=== PATIENT | female | born 1985 | race Caucasian/White ===

== ENCOUNTER → 2017-04-15 | Outpatient (CLI) | payer OTHER ==
[~2017-04-15] MED LIST: DOCU50CA2; PRENTAB26 PO; RANI150T3 PO
== END | disposition home or self-care (01) ==
LOC: C.PAPS 09:05
PROVIDERS: ATTEND Physician Assistant
DX: Z12.4 Encounter for screening for malignant neoplasm of cervix (principal); Z79.890 Hormone replacement therapy

== ENCOUNTER 2021-12-23 21:19 | Inpatient (IN) ==
[2021-12-23] MEDS ORDERED: OXYTOCIN 30 UNITS/500 ML BAG IV PRN (22:05)
[2021-12-23 22:29] LABS: Hematocrit (blood only) 33.4 % (34.1-44.9); Hemoglobin 11.8 g/dl (12.0-16.0); Mean Corpuscular Hgb Conc 35.3 g/dL (32.0-36.0); Mean Corpuscular Volume 90.5 fL (80.0-100.0); Mean Platelet Volume 11.5 fL (9.4-12.3); Platelet Count 154 K/uL (130-400); RDW Standard Deviation 39.4 fL (36.4-46.3); Red Blood Count 3.69 M/uL (3.93-5.22); White Blood Count 9.99 K/ul (4.8-10.8)
--- NOTE | 2021-12-23 23:09 | History & Physical Report ---
Date of Service December 23, 2021 Assessment & Plan (1) Spontaneous rupture of amniotic membranes: Plan: 36-year-old -0-2-1 at 38 weeks and 1 day gestation presenting with spontaneous rupture of membranes since 6:45 PM, Vital signs stable afebrile, H rate reassuring, GBS negative, Early labor with regular contractions, Patient prefers to ambulate and go unmedicated without Pitocin for now, She is open to if needed to augment labor later, She plans to have epidural when she needs it, Plan to admit, monitor, recheck for cervical change, Epidural for pain when she desires, All questions were answered. Admission and Anticipated Discharge Date Admission Date: December 23, 2021 History of Present Illness Chief Complaint: Leakage of fluid Primary Care Provider: Gregoria Maharaj PA-C Patient is a 36-year-old -0-2-1 at 38 weeks and 1 day gestation who felt a big gush of clear fluid leakage from vagina around 6:45 PM. She has been leaking clear fluid since then. Contractions started an hour later and has been irregular and mild. Start to be more regular for the last hour or so. They still feel like Big Arm Romero and not painful. No vaginal bleeding, fever chills, abdominal pain. Good movements. Her has been complicated by, 1. AMA, 2. History of 2 first trimester spontaneous , 3. History of depression 7 years ago, treated with Zoloft and of medications since then. 4. GERD Allergies Allergy/AdvReac Type Severity Reaction Status Date / Time amoxicillin Allergy Mild RASH Verified 12/23/21 21:37 levofloxacin Allergy Mild RASH Verified 12/23/21 21:37 Penicillins Allergy Unknown Rash Verified 12/23/21 21:36 Home Medications Medication Instructions Recorded Confirmed Type prenat.vits,carrie,[id number] 1 tab PO PM 07/02/20 12/23/21 History docusate sodium 100 mg capsule 100 mg PO DAILY 12/23/21 12/23/21 History (Colace) famotidine 20 mg tablet (Pepcid) 20 mg PO DAILY 12/23/21 12/23/21 History omeprazole 20 mg capsule,delayed 20 mg PO DAILY 12/23/21 12/23/21 History release Patient History Medical History History of depression Surgical History Hx of bilateral breast reduction surgery Social History Smoking Status: Never smoker Hx Alcohol Use: No Hx Substance Use: No Preferred Language: Danish Communication Ability: Effective Managed Care Director Required: No Beliefs That Will Affect Care: None marital status: Current Living Situation: Spouse and Family Current Living Situation Comment: and son Eduar current occupational status: employed Other Information That Helps Us Care for You: No Feels Safe at Home: Yes Safety Concerns: Feels Safe At This Time Assistive Devices: None OB History Full-term 7 years ago, 7 pound 6 ounce male infant, 2 first trimester spontaneous abortions [employer] History No history of STDs, no history of herpes, chlamydia, gonorrhea. Review of Systems as per Subjective / HPI Physical Exam Constitutional: WD/WN, vitals as above well developed, well nourished and comfortable (Very happy, smiling and excited) Genitourinary: normal external appearance OB Exam Abdomen: + vertex Manual OB Exam: + cervical dilation 3 cm, + cervical effacement 50% and + station -2 OB Exam Monitor Tracing: + external uterine monitor used and + category I GROSSLY ruptured Results & Data ([facility]) Vital Signs (Past 12 Hours) Vital Signs Temp Pulse Resp BP 12/23/21 21:39 36.6 C 18 12/23/21 21:33 36.6 C 86 18 136/83 Laboratory Results Lab Results 12/23/21 12/23/21 Range/Units 22:15 22:17 WBC 9.99 (4.8-10.8) K/ul RBC 3.69 L (3.93-5.22) M/uL Hgb 11.8 L (12.0-16.0) g/dl Hct 33.4 L (34.1-44.9) % MCV 90.5 (80.0-100.0) fL MCH 32.0 (25.0-34.0) pg MCHC 35.3 (32.0-36.0) g/dL RDW Std Deviation 39.4 (36.4-46.3) fL RDW Coeff of Maximo 12.0 (11.5-14.5) % Plt Count 154 (130-400) K/uL MPV 11.5 (9.4-12.3) fL SARS-CoV-2, RNA, NAAT NEGATIVE (NEGATIVE)
[2021-12-24] MEDS ORDERED: OXYTOCIN 30 UNITS/500 ML BAG IV PRN ×2 (00:46→08:19)
[2021-12-24] MEDS: LACTATED RINGER'S 1,000 ML IV PRN ×2 (02:56→04:20)
[2021-12-24] MEDS ORDERED: ePHEDrine sulfate 50 MG/ML AMP ONE (03:04)
[2021-12-24] MEDS ORDERED: BUPIVACAINE 0.25% 30 ML VIAL ONE (03:05)
[2021-12-24] MEDS ORDERED: fentaNYL citrate 100 MCG/2 ML VIAL ONE (03:05)
[2021-12-24] MEDS ORDERED: fentaNYL 2MCG/ML ROPIVACAINE 1.25MG/ML 100 ML BAG EPI ONE (03:05)
[2021-12-24] MEDS ORDERED: SODIUM CHLORIDE 0.9% INJ 10 ML VIAL ONE (03:05)
[2021-12-24] MEDS ORDERED: LIDOCAINE 2%/EPINEPHRINE 1:200,000 20 ML SDV ONE (03:05)
[2021-12-24] MEDS ORDERED: NALBUPHINE HCL INJ 10 MG/ML AMP IV PRN (04:10)
[2021-12-24] MEDS ORDERED: diphenhydrAMINE 50 MG/ML VIAL IV PRN (04:10)
[2021-12-24] MEDS ORDERED: fentaNYL 2MCG/ML ROPIVACAINE 1.25MG/ML 100 ML BAG EPI PRN (04:10)
[2021-12-24] MEDS ORDERED: NALOXONE HCL 0.4 MG/1 ML VIAL/CARP IV PRN (04:10)
[2021-12-24] MEDS ORDERED: ePHEDrine sulfate 50 MG/ML AMP IV PRN (04:10)
[2021-12-24] MEDS ORDERED: NALOXONE HCL 1 MG in SODIUM CHLORIDE 0.9% 1000ML 1,000 ML IV PRN (04:10)
--- NOTE | 2021-12-24 04:10 | Anesthesiology Consultation ---
Date of Service December 24, 2021 Assessment & Plan Chart Review Chart Review: Patient NOT seen in Pre Admission Testing and Acceptable Risk for Labor Epidural Consults Requested none ASA ASA2 Proposed Anesthesia Anesthesia Type: Labor Epidural Risk / Benefits Reviewed With: PT / POA / Parent / Guardian, Accepts Plan and Informed Consent Obtained History Height/Weight Height: 5 ft 5 in Weight: 68.946 kg Allergies Allergy/AdvReac Type Severity Reaction Status Date / Time amoxicillin Allergy Mild RASH Verified 12/23/21 21:37 levofloxacin Allergy Mild RASH Verified 12/23/21 21:37 Penicillins Allergy Unknown Rash Verified 12/23/21 21:36 Medications Home Medications Medication Instructions Recorded Confirmed Last Taken prenat.vits,carrie,[id number]-[id number] 1 tab PO PM 07/02/20 12/23/21 12/22/21 08:00 docusate sodium 100 mg capsule 100 mg PO DAILY 12/23/21 12/23/21 12/23/21 (Colace) famotidine 20 mg tablet (Pepcid) 20 mg PO DAILY 12/23/21 12/23/21 12/23/21 omeprazole 20 mg capsule,delayed 20 mg PO DAILY 12/23/21 12/23/21 12/23/21 release Active Medications Generic Name Dose Route Start Last Admin Trade Name Freq PRN Reason Stop Dose Admin Lactated Ringer's 1,000 mls @ 125 mls/hr 12/23/21 22:05 12/24/21 03:54 Lr IV 12/25/21 22:04 999 mls/hr .Q8H PRN Infusion L&D Protocol Protocol Past Medical History Medical History History of depression Exercise / Class Metabolic Activity II 4-5 Yardwork/Stairs/Walk up hill Past Surgical History Surgical History Hx of bilateral breast reduction surgery Past Anesthesia History No Hx of Anesthesia Complications and No Family Hx of Anesthesia Complications History of PONV No Hx of PONV and No Hx of Motion Sickness Social History Smoking Status: Never smoker Hx Alcohol Use: No Hx Substance Use: No substance use type: does not use Physical Exam Vital Signs Last Vital Signs Temp 36.8 C 12/24/21 03:00 Pulse 106 H 12/24/21 04:08 Resp 20 12/24/21 03:59 BP 103/57 L 12/24/21 04:07 Pulse Ox 97 12/24/21 04:08 ENMT Mouth: no dentition abnormality Thyromental Distance: > or= 3.5 Finger Breadths Mallampati Class: II Neck normal visual inspection Respiratory normal respiratory effort Auscultation: lungs clear to auscultation bilaterally Cardiovascular Rate/Rhythm: regular rate and regular rhythm Psychiatric Orientation: alert Testing Laboratory Results 12/23/21 22:17
[2021-12-24] MEDS: ONDANSETRON INJ 2 MG/ML 2 ML VIAL IV PRN ×2 (04:38→09:21)
[2021-12-24] MEDS ORDERED: METHYLERGONOVINE MALEATE 0.2 MG/ML AMP ONE (07:53)
[2021-12-24] MEDS ORDERED: miSOPROStoL 200 MCG TAB ONE (07:53)
[2021-12-24] MEDS ORDERED: HYDROCORTISONE ACETATE 25 MG SUPP PR PRN (08:19)
[2021-12-24] MEDS ORDERED: miSOPROStoL 200 MCG TAB PR ONE (08:19)
[2021-12-24] MEDS ORDERED: DIPHTHERIA/TETANUS/PERTUSSIS 0.5 ML SYR/VIAL IM ONE (08:19)
[2021-12-24] MEDS ORDERED: METHYLERGONOVINE MALEATE 0.2 MG/ML AMP IM ONE (08:19)
[2021-12-24] MEDS ORDERED: BENZOCAINE 20% AER SPR 82.5 GM CAN EXT PRN (08:19)
[2021-12-24] MEDS ORDERED: bisacodyL 10 MG SUPP PR PRN (08:19)
[2021-12-24 08:29] LABS: Base Excess Cord Venous Blood -1.5 mEq/L (-7.7-1.9); Cord Venous Blood HCO3 23 mmol/L (18.4-26.8); Cord Venous Blood PCO2 37 mmHg (30.4-57.2); Cord Venous Blood PO2 30 mmHg (14.1-43.3); O2 Saturation Cord Venous Bld 67.5 % (<68)
[2021-12-24 08:34] LABS: Base Excess Cord Arterial Bld -2.9 mEq/L (-9-1.8); CO2 Cord Arterial Blood 49 mmHg (39.1-73.5); HCO3 Cord Arterial Blood 24 mmol/L (19.7-28.5); Oxygen Sat Cord Arterial Blood < 60.0 % (<60); PO2 Cord Arterial Blood 25 mmHg (4.1-31.7)
--- NOTE | 2021-12-24 09:24 | Anesthesia Procedure Note ---
Date of Service December 24, 2021 Anesthesia Post Epidural Note Vital Signs Vital Signs: Temp Pulse Resp BP Pulse Ox 36.5 C 67 18 120/68 100 12/24/21 08:00 12/24/21 09:15 12/24/21 09:00 12/24/21 09:15 12/24/21 07:43 Notes Mental Status: alert / awake / arousable and participated in evaluation Nausea / Vomiting: adequately controlled Pain: adequately controlled Airway Patency, RR, SpO2: stable & adequate BP & HR: stable & adequate Hydration State: stable & adequate Neuraxial Anesthesia: was administered and sensory block is resolving Anesthetic Complications: no major complications apparent and Pt Satisfied with anesthetic care Epidural: Removed without complications and With tip intact
[2021-12-24] MEDS: IBUPROFEN 600 MG TAB PO PRN ×3 (09:27→19:03)
[2021-12-24] MEDS: ACETAMINOPHEN 325 MG TAB PO PRN ×3 (11:13→23:41)
[2021-12-24] MEDS: DOCUSATE SODIUM 100 MG CAP PO SCH (20:03)
[2021-12-25] MEDS: ONDANSETRON INJ 2 MG/ML 2 ML VIAL IV PRN (03:18)
[2021-12-25] MEDS: ACETAMINOPHEN 325 MG TAB PO PRN (06:15)
[2021-12-25 06:46] LABS: Hematocrit (blood only) 32.2 % (34.1-44.9); Hemoglobin 11.2 g/dl (12.0-16.0); Mean Corpuscular Hemoglobin 31.8 pg (25.0-34.0); Mean Corpuscular Hgb Conc 34.8 g/dL (32.0-36.0); Mean Corpuscular Volume 91.5 fL (80.0-100.0); Mean Platelet Volume 11.9 fL (9.4-12.3); Platelet Count 138 K/uL (130-400); RDW Coefficient of Variation 12.4 % (11.5-14.5); RDW Standard Deviation 41.1 fL (36.4-46.3); Red Blood Count 3.52 M/uL (3.93-5.22)
[2021-12-25] MEDS: DOCUSATE SODIUM 100 MG CAP PO SCH (07:27)
[2021-12-25] MEDS: IBUPROFEN 600 MG TAB PO PRN ×2 (07:27→11:07)
[2021-12-25] MEDS ORDERED: PRENATAL VITAMIN 1 TAB PO SCH (08:00)
--- NOTE | 2021-12-25 09:17 | Obstetrical Progress Note ---
Date of Service December 25, 2021 Assessment & Plan Admission and Anticipated Discharge Date Admission Date: December 23, 2021 Subjective Patient is seen and examined. She feels well, no complaints. Ambulating without dizziness Voiding without difficulty Tolerating regular diet with out N&V Bleeding is minimal No fever/ chills/ CP/ SOB/ N&V/ Leg pain Breast feeding without problems Vital Signs Temp Pulse Resp BP Pulse Ox O2 Del Method 12/25/21 03:30 36.5 C 76 16 115/67 Room Air 12/24/21 23:45 36.7 C 64 16 98/61 L 98 Room Air Lab Results 12/23/21 12/23/21 12/24/21 Range/Units 22:15 22:17 07:41 WBC 9.99 (4.8-10.8) K/ul RBC 3.69 L (3.93-5.22) M/uL Hgb 11.8 L (12.0-16.0) g/dl Hct 33.4 L (34.1-44.9) % MCV 90.5 (80.0-100.0) fL MCH 32.0 (25.0-34.0) pg MCHC 35.3 (32.0-36.0) g/dL RDW Std Deviation 39.4 (36.4-46.3) fL RDW Coeff of Maximo 12.0 (11.5-14.5) % Plt Count 154 (130-400) K/uL MPV 11.5 (9.4-12.3) fL Cord ABG pH (7.1-7.38) Cord ABG pCO2 (39.1-73.5) mmHg Cord ABG pO2 (4.1-31.7) mmHg Cord ABG HCO3 (19.7-28.5) mmol/L Cord ABG Base Excess (-9-1.8) mEq/L Cord ABG O2 Sat (<60) % Cord VBG pH 7.40 (7.20-7.44) Cord VBG pCO2 37 (30.4-57.2) mmHg Cord VBG pO2 30 (14.1-43.3) mmHg Cord VBG HCO3 23 (18.4-26.8) mmol/L Cord VBG Base Excess -1.5 (-7.7-1.9) mEq/L Cord VBG O2 Sat 67.5 (<68) % Blood Gas Comments BIGGS SARS-CoV-2, RNA, NAAT NEGATIVE (NEGATIVE) 12/24/21 12/25/21 Range/Units 07:41 06:09 WBC 12.00 H (4.8-10.8) K/ul RBC 3.52 L (3.93-5.22) M/uL Hgb 11.2 L (12.0-16.0) g/dl Hct 32.2 L (34.1-44.9) % MCV 91.5 (80.0-100.0) fL MCH 31.8 (25.0-34.0) pg MCHC 34.8 (32.0-36.0) g/dL RDW Std Deviation 41.1 (36.4-46.3) fL RDW Coeff of Maximo 12.4 (11.5-14.5) % Plt Count 138 (130-400) K/uL MPV 11.9 (9.4-12.3) fL Cord ABG pH 7.30 (7.1-7.38) Cord ABG pCO2 49 (39.1-73.5) mmHg Cord ABG pO2 25 (4.1-31.7) mmHg Cord ABG HCO3 24 (19.7-28.5) mmol/L Cord ABG Base Excess -2.9 (-9-1.8) mEq/L Cord ABG O2 Sat < 60.0 (<60) % Cord VBG pH (7.20-7.44) Cord VBG pCO2 (30.4-57.2) mmHg Cord VBG pO2 (14.1-43.3) mmHg Cord VBG HCO3 (18.4-26.8) mmol/L Cord VBG Base Excess (-7.7-1.9) mEq/L Cord VBG O2 Sat (<68) % Blood Gas Comments BIGGS SARS-CoV-2, RNA, NAAT (NEGATIVE) PE: General: Alert, orientedx3, NAD Abd: soft, NT, fundus firm, below Umbilicus Perineum intact, Lochia rubra minimal Ext; NT, no edema AP: 36 yo s/p , ppd# 1 VSS Afebrile doing well Continue routine care Desires d/c today All questions were answered Discussed when to call D/C home , f/u in office. Results & Data ([facility]) Vital Signs (Past 12 Hours) Vital Signs Temp Pulse Resp BP Pulse Ox O2 Del Method 12/25/21 03:30 36.5 C 76 16 115/67 Room Air 12/24/21 23:45 36.7 C 64 16 98/61 L 98 Room Air
[2021-12-25] MEDS ORDERED: bisacodyL 5 MG TABEC PO SCH (20:00)
--- NOTE | 2022-01-09 20:20 | Delivery Summary ---
DATE OF DELIVERY: 12/24/2021 DELIVERY NOTE: The patient delivered a live in left occiput anterior presentation. There was no nuchal cord. was delivered and placed on mother's abdomen. Delayed cord clamp was perfor med. Infant was placed on mother's abdomen. Cord blood was obtained. Placenta spontaneously delive red. Inspection of the placenta shows a normal-looking placenta. Inspection of the perineum showed a second-degree laceration, which was repaired with 2-0 Vicryl. Rectal exam post-repair showed good sphincter tone. Estimated blood loss was 450 mL. The patient and baby are doing well in recovery. Job ID: [id number]
== END 2021-12-25 13:35 | disposition home or self-care (01) | DRG 807 ==
LOC: OPB 21:19 → 4S1 21:24 → 4E2 12-24 10:55